=== PATIENT | male | born 1950 | race Caucasian/White ===

== ENCOUNTER 2016-12-01 03:38 | Inpatient (IN) | payer OTHER ==
[2016-11-30 04:55] VITALS: BP 154/92
[~2016-12-01] VITALS: Ht 188 cm; Wt 64.1 kg
[2016-12-01] VITALS (10 sets, daily range): BP systolic 126–187; BP diastolic 71–94
[2016-12-01] MEDS ORDERED: MORPHINE SULFATE 2 MG/ML DISP.SYRIN. IV PRN ×2 (05:30→12:45)
[2016-12-01] MEDS ORDERED: IV NORMAL SALINE 1000ML BAG 1,000 ML IV SCH (05:30)
[2016-12-01] MEDS ORDERED: MULT1TAB52 PO (05:53)
[2016-12-01] MEDS ORDERED: THIA100T8 PO (05:53)
[2016-12-01] MEDS ORDERED: LACT-128 PO ×2 (05:53)
[2016-12-01] MEDS ORDERED: FOLI1TAB16 PO (05:53)
[2016-12-01] MEDS ORDERED: ASPI81TA2 PO (05:53)
[2016-12-01] MEDS ORDERED: LISI40TA PO (05:53)
[2016-12-01 08:41] LABS: BASO # 0.1 x10^3/uL (0.0-0.2); BASO % 1 % (0-3); EOS % 0 % (0-3); HEMATOCRIT 43.9 % (39.0-53.0); HEMOGLOBIN 15.5 g/dL (13.0-17.5); LYMPH # 1.3 x10^3/uL (1.0-4.8); LYMPH % 11 % (24-48); MEAN CORPUSCULAR HEMOGLOBIN 36 pg (25-35); MEAN CORPUSCULAR HGB CONC 35 g/dL (31-37); MEAN CORPUSCULAR VOLUME 101 fL (79-100); MONO % 7 % (0-9); NEUT % 81 % (31-73); PLATELET COUNT 372 x10^3/uL (140-400); RED BLOOD COUNT 4.36 x10^6/uL (4.30-5.70); RED CELL DISTRIBUTION WIDTH 13.5 % (11.5-14.5); WHITE BLOOD COUNT 12.1 x10^3/uL (4.0-11.0)
[2016-12-01 09:00] LABS: ALBUMIN 3.6 g/dL (3.4-5.0); ALBUMIN/GLOBULIN RATIO 0.9 (1.0-1.7); CALCIUM 8.8 mg/dL (8.5-10.1); CREATININE 0.8 mg/dL (0.7-1.3); GFR 97.3; TOTAL BILIRUBIN 0.6 mg/dL (0.2-1.0); TOTAL PROTEIN 7.5 g/dL (6.4-8.2)
[2016-12-01] MEDS ORDERED: ONDANSETRON PF 4 MG/2 ML VIAL. IV PRN ×4 (10:00→16:00)
--- NOTE | 2016-12-01 12:03 | PDOC1 ---
History and Physical Current Medications Current Medications Current Medications Medications (Trade) Dose Ordered Sig/Walker Start Time Stop Time Status Last Admin Dose Admin Morphine Sulfate 1 mg PRN Q2HR PRN 12/01/16 05:30 Ondansetron HCl (Zofran) 4 mg PRN Q6HRS PRN 12/01/16 10:00 12/01/16 09:55 4 MG Sodium Chloride 1,000 ml @ 100 mls/hr Q10H 12/01/16 05:30 12/01/16 05:30 100 MLS/HR Allergies Allergies Allergies Coded Allergies Type Severity Reaction Last Updated Verified No Known Drug Allergies 12/01/16 No ROS Review of System CONSTITUTIONAL: No fever or chills EYES: No recent changes SKIN: No rash or itching CARDIOVASCULAR: No chest pain, syncope, palpitations, or edema RESPIRATORY: No SOB or cough GASTROINTESTINAL: abdominal pain NEUROLOGICAL: No headaches or weakness ENDOCRINE: No cold or heat intolerance GENITOURINARY: No urgency or frequency of urination MUSCULOSKELETAL: No back pain or joint pain LYMPHATICS: No enlarged lymph nodes PSYCHIATRIC: No anxiety or depression Physical Exam Physical Exam GEN.: No apparent distress. Alert and oriented TIMES 3 HEENT: Head is normocephalic, atraumatic NECK: Supple. LUNGS: Clear to auscultation. HEART: RRR, S1, S2 present. Peripheral pulses intact ABDOMEN: Soft, tender RLQ. Positive bowel sounds.INCARCERATED HERNIA EXTREMITIES: Without any cyanosis. NEUROLOGIC: Normal speech, normal tone PSYCHIATRIC: Normal affect, normal mood. SKIN: No ulcerations Vitals Vitals Vital Signs Date Time Temp Pulse Resp B/P (MAP) Pulse Ox O2 Delivery O2 Flow Rate FiO2 12/01/16 11:02 99.1 75 17 187/94 (125) 97 Room Air 99.1 Labs Labs Laboratory Tests Test 12/01/16 08:00 White Blood Count 12.1 x10^3/uL (4.0-11.0) Red Blood Count 4.36 x10^6/uL (4.30-5.70) Hemoglobin 15.5 g/dL (13.0-17.5) Hematocrit 43.9 % (39.0-53.0) Mean Corpuscular Volume 101 fL (79-100) Mean Corpuscular Hemoglobin 36 pg (25-35) Mean Corpuscular Hemoglobin Concent 35 g/dL (31-37) Red Cell Distribution Width 13.5 % (11.5-14.5) Platelet Count 372 x10^3/uL (140-400) Neutrophils (%) (Auto) 81 % (31-73) Lymphocytes (%) (Auto) 11 % (24-48) Monocytes (%) (Auto) 7 % (0-9) Eosinophils (%) (Auto) 0 % (0-3) Basophils (%) (Auto) 1 % (0-3) Neutrophils # (Auto) 9.9 x10^3uL (1.8-7.7) Lymphocytes # (Auto) 1.3 x10^3/uL (1.0-4.8) Monocytes # (Auto) 0.8 x10^3/uL (0.0-1.1) Eosinophils # (Auto) 0.0 x10^3/uL (0.0-0.7) Basophils # (Auto) 0.1 x10^3/uL (0.0-0.2) Sodium Level 130 mmol/L (136-145) Potassium Level 4.0 mmol/L (3.5-5.1) Chloride Level 95 mmol/L (98-107) Carbon Dioxide Level 29 mmol/L (21-32) Anion Gap 6 (6-14) Blood Urea Nitrogen 9 mg/dL (8-26) Creatinine 0.8 mg/dL (0.7-1.3) Estimated GFR (Cockcroft-Gault) 97.3 BUN/Creatinine Ratio 11 (6-20) Glucose Level 118 mg/dL (70-99) Lactic Acid Level 1.1 mmol/L (0.4-2.0) Calcium Level 8.8 mg/dL (8.5-10.1) Total Bilirubin 0.6 mg/dL (0.2-1.0) Aspartate Amino Transf (AST/SGOT) 29 U/L (15-37) Alanine Aminotransferase (ALT/SGPT) 25 U/L (16-63) Alkaline Phosphatase 43 U/L (46-116) Total Protein 7.5 g/dL (6.4-8.2) Albumin 3.6 g/dL (3.4-5.0) Albumin/Globulin Ratio 0.9 (1.0-1.7) Laboratory Tests Test 12/01/16 08:00 White Blood Count 12.1 x10^3/uL (4.0-11.0) Red Blood Count 4.36 x10^6/uL (4.30-5.70) Hemoglobin 15.5 g/dL (13.0-17.5) Hematocrit 43.9 % (39.0-53.0) Mean Corpuscular Volume 101 fL (79-100) Mean Corpuscular Hemoglobin 36 pg (25-35) Mean Corpuscular Hemoglobin Concent 35 g/dL (31-37) Red Cell Distribution Width 13.5 % (11.5-14.5) Platelet Count 372 x10^3/uL (140-400) Neutrophils (%) (Auto) 81 % (31-73) Lymphocytes (%) (Auto) 11 % (24-48) Monocytes (%) (Auto) 7 % (0-9) Eosinophils (%) (Auto) 0 % (0-3) Basophils (%) (Auto) 1 % (0-3) Neutrophils # (Auto) 9.9 x10^3uL (1.8-7.7) Lymphocytes # (Auto) 1.3 x10^3/uL (1.0-4.8) Monocytes # (Auto) 0.8 x10^3/uL (0.0-1.1) Eosinophils # (Auto) 0.0 x10^3/uL (0.0-0.7) Basophils # (Auto) 0.1 x10^3/uL (0.0-0.2) Sodium Level 130 mmol/L (136-145) Potassium Level 4.0 mmol/L (3.5-5.1) Chloride Level 95 mmol/L (98-107) Carbon Dioxide Level 29 mmol/L (21-32) Anion Gap 6 (6-14) Blood Urea Nitrogen 9 mg/dL (8-26) Creatinine 0.8 mg/dL (0.7-1.3) Estimated GFR (Cockcroft-Gault) 97.3 BUN/Creatinine Ratio 11 (6-20) Glucose Level 118 mg/dL (70-99) Lactic Acid Level 1.1 mmol/L (0.4-2.0) Calcium Level 8.8 mg/dL (8.5-10.1) Total Bilirubin 0.6 mg/dL (0.2-1.0) Aspartate Amino Transf (AST/SGOT) 29 U/L (15-37) Alanine Aminotransferase (ALT/SGPT) 25 U/L (16-63) Alkaline Phosphatase 43 U/L (46-116) Total Protein 7.5 g/dL (6.4-8.2) Albumin 3.6 g/dL (3.4-5.0) Albumin/Globulin Ratio 0.9 (1.0-1.7) VTE Prophylaxis Ordered VTE Prophylaxis Devices: Yes VTE Pharmacological Prophylaxi: Yes RETA ALCALA MD December 01, 2016 12:03
[2016-12-01] MEDS ORDERED: hydrALAZINE 20 MG/ML VIAL. IVP PRN (12:15)
[2016-12-01] MEDS ORDERED: ACETAMINOPHEN 325 MG TABLET. PO PRN (12:15)
[2016-12-01] MEDS ORDERED: ALBUTEROL SULFATE 2.5 MG/3 ML NEBU. NEB PRN (12:15)
[2016-12-01] MEDS ORDERED: IV RINGERS,LACTATED 1000ML 1,000 ML IV SCH (12:42)
[2016-12-01] MEDS ORDERED: fentaNYL PF VIAL 100 MCG/2 ML VIAL IV PRN ×2 (12:45)
[2016-12-01] MEDS ORDERED: HYDROmorphone 2 MG/ML VIAL IV PRN (12:45)
[2016-12-01] MEDS ORDERED: LIDOCAINE 1% 1 ML SYRINGE. ID PRN (12:45)
[2016-12-01] MEDS ORDERED: PROCHLORPERAZINE 10 MG/2 ML VIAL. IV PRN (12:45)
--- NOTE | 2016-12-01 12:53 | PDOC ---
SURGICAL PROGRESS NOTE Subjective 66 yo M with incarcerated RIH TO OR for repair R/B/A d/w pt and pt's daughter Thanks for consult! [id number] Vital Signs Vital Signs Date Time Temp Pulse Resp B/P (MAP) Pulse Ox O2 Delivery O2 Flow Rate FiO2 12/01/16 11:02 99.1 75 17 187/94 (125) 97 Room Air 99.1 Labs Laboratory Tests Test 12/01/16 08:00 White Blood Count 12.1 x10^3/uL (4.0-11.0) Red Blood Count 4.36 x10^6/uL (4.30-5.70) Hemoglobin 15.5 g/dL (13.0-17.5) Hematocrit 43.9 % (39.0-53.0) Mean Corpuscular Volume 101 fL (79-100) Mean Corpuscular Hemoglobin 36 pg (25-35) Mean Corpuscular Hemoglobin Concent 35 g/dL (31-37) Red Cell Distribution Width 13.5 % (11.5-14.5) Platelet Count 372 x10^3/uL (140-400) Neutrophils (%) (Auto) 81 % (31-73) Lymphocytes (%) (Auto) 11 % (24-48) Monocytes (%) (Auto) 7 % (0-9) Eosinophils (%) (Auto) 0 % (0-3) Basophils (%) (Auto) 1 % (0-3) Neutrophils # (Auto) 9.9 x10^3uL (1.8-7.7) Lymphocytes # (Auto) 1.3 x10^3/uL (1.0-4.8) Monocytes # (Auto) 0.8 x10^3/uL (0.0-1.1) Eosinophils # (Auto) 0.0 x10^3/uL (0.0-0.7) Basophils # (Auto) 0.1 x10^3/uL (0.0-0.2) Sodium Level 130 mmol/L (136-145) Potassium Level 4.0 mmol/L (3.5-5.1) Chloride Level 95 mmol/L (98-107) Carbon Dioxide Level 29 mmol/L (21-32) Anion Gap 6 (6-14) Blood Urea Nitrogen 9 mg/dL (8-26) Creatinine 0.8 mg/dL (0.7-1.3) Estimated GFR (Cockcroft-Gault) 97.3 BUN/Creatinine Ratio 11 (6-20) Glucose Level 118 mg/dL (70-99) Lactic Acid Level 1.1 mmol/L (0.4-2.0) Calcium Level 8.8 mg/dL (8.5-10.1) Total Bilirubin 0.6 mg/dL (0.2-1.0) Aspartate Amino Transf (AST/SGOT) 29 U/L (15-37) Alanine Aminotransferase (ALT/SGPT) 25 U/L (16-63) Alkaline Phosphatase 43 U/L (46-116) Total Protein 7.5 g/dL (6.4-8.2) Albumin 3.6 g/dL (3.4-5.0) Albumin/Globulin Ratio 0.9 (1.0-1.7) Laboratory Tests Test 12/01/16 08:00 White Blood Count 12.1 x10^3/uL (4.0-11.0) Red Blood Count 4.36 x10^6/uL (4.30-5.70) Hemoglobin 15.5 g/dL (13.0-17.5) Hematocrit 43.9 % (39.0-53.0) Mean Corpuscular Volume 101 fL (79-100) Mean Corpuscular Hemoglobin 36 pg (25-35) Mean Corpuscular Hemoglobin Concent 35 g/dL (31-37) Red Cell Distribution Width 13.5 % (11.5-14.5) Platelet Count 372 x10^3/uL (140-400) Neutrophils (%) (Auto) 81 % (31-73) Lymphocytes (%) (Auto) 11 % (24-48) Monocytes (%) (Auto) 7 % (0-9) Eosinophils (%) (Auto) 0 % (0-3) Basophils (%) (Auto) 1 % (0-3) Neutrophils # (Auto) 9.9 x10^3uL (1.8-7.7) Lymphocytes # (Auto) 1.3 x10^3/uL (1.0-4.8) Monocytes # (Auto) 0.8 x10^3/uL (0.0-1.1) Eosinophils # (Auto) 0.0 x10^3/uL (0.0-0.7) Basophils # (Auto) 0.1 x10^3/uL (0.0-0.2) Sodium Level 130 mmol/L (136-145) Potassium Level 4.0 mmol/L (3.5-5.1) Chloride Level 95 mmol/L (98-107) Carbon Dioxide Level 29 mmol/L (21-32) Anion Gap 6 (6-14) Blood Urea Nitrogen 9 mg/dL (8-26) Creatinine 0.8 mg/dL (0.7-1.3) Estimated GFR (Cockcroft-Gault) 97.3 BUN/Creatinine Ratio 11 (6-20) Glucose Level 118 mg/dL (70-99) Lactic Acid Level 1.1 mmol/L (0.4-2.0) Calcium Level 8.8 mg/dL (8.5-10.1) Total Bilirubin 0.6 mg/dL (0.2-1.0) Aspartate Amino Transf (AST/SGOT) 29 U/L (15-37) Alanine Aminotransferase (ALT/SGPT) 25 U/L (16-63) Alkaline Phosphatase 43 U/L (46-116) Total Protein 7.5 g/dL (6.4-8.2) Albumin 3.6 g/dL (3.4-5.0) Albumin/Globulin Ratio 0.9 (1.0-1.7) ELADIA KLEIN MD December 01, 2016 12:53
[2016-12-01] MEDS ORDERED: DEXAMETHASONE SOD PHOS 20 MG/5 ML VIAL. ONE (13:48)
[2016-12-01] MEDS ORDERED: SUCCINYLCHOLINE 200 MG/10 ML VIAL. ONE (13:48)
[2016-12-01] MEDS ORDERED: fentaNYL PF VIAL 100 MCG/2 ML VIAL ONE ×2 (13:48→15:45)
[2016-12-01] MEDS ORDERED: PROPOFOL 20 ML IV ONE (13:48)
[2016-12-01] MEDS ORDERED: ONDANSETRON PF 4 MG/2 ML VIAL. ONE (13:48)
[2016-12-01] MEDS ORDERED: LIDOCAINE 2% 100 MG/5 ML SYRINGE. ONE (13:48)
[2016-12-01] MEDS ORDERED: ceFAZolin 2GM PREMIX 2 GM/50 ML BAG IV ONE (14:00)
[2016-12-01] MEDS ORDERED: BUPIVAC MPF-EPI 0.5%-1:200000 30 ML VIAL. ONE (14:22)
[2016-12-01] MEDS ORDERED: VECURONIUM BOLUS 10 MG VIAL. IV ONE (14:36)
[2016-12-01] MEDS ORDERED: ePHEDrine PF IN SALINE 50 MG/5 ML DISP.SYRIN IV ONE (15:24)
[2016-12-01] MEDS ORDERED: PHENYLEPHRINE in 0.9% NACL PF 1 MG/10 ML DISP.SYRIN. IV ONE (15:46)
[2016-12-01] MEDS ORDERED: GLYCOPYRROLATE 1 MG/5 ML VIAL. ONE (15:50)
[2016-12-01] MEDS ORDERED: NEOSTIGMINE METHYLSULFATE 5 MG/5 ML SYRINGE. ONE (15:51)
[2016-12-01] MEDS ORDERED: SEVOFLURANE 61 TO 120 MINUTES. IH ONE (15:54)
[2016-12-01] MEDS: IV NORMAL SALINE 1000ML BAG 1,000 ML IV SCH (15:56)
[2016-12-01] MEDS ORDERED: NALOXONE 0.4 MG/ML VIAL. IV PRN (16:00)
[2016-12-01] MEDS ORDERED: 0.9 % SODIUM CHLORIDE 10 ML DISP.SYRIN. IV PRN (16:00)
[2016-12-01] MEDS ORDERED: ENOXAPARIN 40 MG/0.4 ML SYRINGE. SQ SCH (16:00)
--- NOTE | 2016-12-01 16:06 | PDOC ---
BRIEF OPERATIVE NOTE Pre-Op Diagnosis Incarcerated RIH Post-Op Diagnosis Right femoral hernia Procedure Performed Right femoral hernia repair, laparoscopic exploration Surgeon Ashu Anesthesia Type: General, Local Blood Loss 20 IV Fluid 800 Specimens Obtained hernia sac Findings no compromised bowel Complications none Additional Remarks [id number] ELADIA KLEIN MD December 01, 2016 16:06
[2016-12-01] MEDS: IV RINGERS,LACTATED 1000ML 1,000 ML IV SCH (16:58)
[2016-12-02 03:10] VITALS: BP 120/72
[2016-12-02] MEDS: IV RINGERS,LACTATED 1000ML 1,000 ML IV SCH ×3 (05:43→21:56)
[2016-12-02 06:52] LABS: BASO % 0 % (0-3); EOS % 0 % (0-3); HEMATOCRIT 37.5 % (39.0-53.0); HEMOGLOBIN 13.1 g/dL (13.0-17.5); LYMPH # 1.6 x10^3/uL (1.0-4.8); LYMPH % 13 % (24-48); MEAN CORPUSCULAR HEMOGLOBIN 36 pg (25-35); MEAN CORPUSCULAR HGB CONC 35 g/dL (31-37); MEAN CORPUSCULAR VOLUME 102 fL (79-100); MONO % 9 % (0-9); NEUT % 78 % (31-73); PLATELET COUNT 309 x10^3/uL (140-400); RED BLOOD COUNT 3.69 x10^6/uL (4.30-5.70); RED CELL DISTRIBUTION WIDTH 13.7 % (11.5-14.5); WHITE BLOOD COUNT 12.4 x10^3/uL (4.0-11.0)
[2016-12-02 07:04] LABS: CALCIUM 8.2 mg/dL (8.5-10.1); CREATININE 0.8 mg/dL (0.7-1.3); GFR 97.3; POTASSIUM 4.3 mmol/L (3.5-5.1)
[2016-12-02] MEDS: ENOXAPARIN 40 MG/0.4 ML SYRINGE. SQ SCH (09:17)
--- NOTE | 2016-12-02 09:42 | CONS ---
DATE OF CONSULTATION: 12/01/2016 REFERRING PHYSICIANS: Dr. Pk Borja, Dr. Roxy Jovel. CHIEF COMPLAINT: Right groin pain, nausea and vomiting. DIAGNOSIS: Incarcerated right inguinal hernia. PLANNED PROCEDURE: Right inguinal hernia repair, possible bowel resection. INDICATION: A 66-year-old male who does not report a previous hernia, presents with complaints of right groin pain and tender bulge with some associated nausea and vomiting, has had some diarrhea associated with this. He was seen at the outside facility and subsequently transferred to [facility] for definitive care. He is seen in his hospital room, does report having some nausea and dry heaves, but reports fairly minimal pain. He denies previous episodes of anything like this. He is accompanied by supportive daughter. ALLERGIES: He has no known drug allergies. HOME MEDICATIONS: Include aspirin, folic acid, Ensure, lisinopril, and thiamine. PAST MEDICAL HISTORY: History of TIA, psychiatric problems. PAST SURGICAL HISTORY: None. SOCIAL HISTORY: Positive for tobacco, six pack per week, reported to have some history of alcohol abuse, he also smokes frequently, is encouraged on moderation on using. FAMILY HISTORY: Positive for stroke. REVIEW OF SYSTEMS: All systems reviewed and negative except for HPI. PHYSICAL EXAMINATION: GENERAL: Well-developed, very thin male in no obvious distress, given his BMI is concerning for chronic malnutrition, is normocephalic, atraumatic, somewhat disheveled. VITAL SIGNS: He is afebrile. HEENT: Within normal limits, although he is noted to have some hypertension. Pupils equal. Anicteric sclerae. Oropharynx clear. NECK: Supple. Trachea is midline. CHEST: Bilateral chest excursion, no chest wall tenderness to palpation. ABDOMEN: Soft, nondistended, nontender to palpation. He has a palpable irreducible right groin bulge. No peritoneal signs. EXTREMITIES: No clubbing, cyanosis or edema. IMAGING: From the outside facility demonstrates concern for an incarcerated right inguinal hernia with associated small-bowel obstruction. IMPRESSION AND RECOMMENDATIONS: This is a 66-year-old male with incarcerated right inguinal hernia. We will plan on right inguinal hernia repair as soon as OR is available. Risks, benefits, alternatives are discussed with the patient and the patient's daughter. Risks including but not limited to bleeding, infection, damage to surrounding structures, risk of anesthesia, risk of need for bowel resection. He does remain at high risk for perioperative complications secondary concern for chronic malnutrition, alcohol abuse and tobacco abuse. The patient and the patient's daughter appear to understand and their entire questions were answered and they agreed to proceed. Thank you for allowing participation in the care of this pleasant patient. ELADIA KLEIN MD DR: APARNA/bia JOB#: [id number] / [id number] ROXY Cerda MD, SRINIVASA MD
--- NOTE | 2016-12-02 09:43 | HP ---
ADMIT DATE: 12/01/2016 CHIEF COMPLAINT: Abdominal pain. HISTORY OF PRESENT ILLNESS: A 66-year-old male patient admitted to the hospital for abdominal pain, intractable in nature with nausea and episodes of vomiting. The abdominal pain is there for a couple of days and located to the right lower quadrant region, worse with coughing and also noted to have some bump-like swelling. He is being transferred to the hospital for surgical consultation. During hospitalization, he was seen by Dr. Wakefield. PAST MEDICAL HISTORY: Hypertension. PAST SURGICAL HISTORY: None. PERSONAL HISTORY: No smoking, no alcohol, no drug abuse. FAMILY HISTORY: No cancers, GI. REVIEW OF SYSTEMS: Please see my electronic H and P. PHYSICAL EXAMINATION: Please see my electronic H and P. LABORATORY FINDINGS: Revealed CBC and BMP within normal limits. WBC is 12.1 and platelets 372. Chemistries: Sodium 130, potassium 4.0, chloride is 95. Glucose 118. ASSESSMENT: 1. Incarcerated right inguinal hernia. 2. Hypertension. PLAN: 1. Pain control with IV morphine 2 mg q.2 hours. 2. N.p.o. 3. IV hydration with normal saline at 75 mL/hour. 4. Surgical consultation with Dr. Wakefield with possible femoral hernia repair today, laparoscopic. 5. P.r.n. hydralazine for blood pressure systolic more than 150. 6. Monitor his electrolytes and sodium in the a.m. 7. Supportive care. RETA ALCALA MD DR: CARLOS/bia JOB#: [id number] / [id number] KAPIL
--- NOTE | 2016-12-02 09:43 | OP ---
DATE OF SURGERY: 12/01/2016 REFERRING PHYSICIANS: Dr. Fleming, Dr. Roxy Jovel and Dr. Pk Borja. Thank you for the consult. PREOPERATIVE DIAGNOSES: Right incarcerated hernia, small-bowel obstruction. POSTOPERATIVE DIAGNOSES: Right incarcerated hernia, small-bowel obstruction, femoral hernia. PROCEDURE: Right femoral hernia repair, laparoscopic exploration. SURGEON: Anselmo Wakefield MD ESTIMATED BLOOD LOSS: 20 mL COMPLICATIONS: None. FINDINGS: Viable-appearing small bowel, no current viscera within the femoral hernia sac. INDICATIONS: A 66-year-old male who presents from an outside facility with a concern for incarcerated right inguinal hernia by CT. Subsequently, it was felt the patient best be served by a right inguinal hernia repair and possible small bowel resection. The patient and patient's family were informed of the risks, benefits and alternatives to the procedure, risks including, but not limited to bleeding, infection, damage to surrounding structures, risk of anesthesia, risk of bowel resection. The patient and the patient's family appeared to understand and their insightful questions were answered and they agreed to proceed. DESCRIPTION OF PROCEDURE: After obtaining informed consent, the patient was taken to the operating room, induced under general endotracheal anesthetic. The patient was prepped and draped in the usual fashion in the right groin area over the palpable defect. A transverse incision was made in this area. The subcutaneous tissue was divided using electrocautery. The Karuna's fascia was divided using electrocautery. The external oblique was identified by the direction of its fibers as well as the exiting spermatic cord. There was no evidence of obvious hernia here. The hernia was identified below the inguinal ligament consistent with a femoral hernia, which appeared to be incarcerated and was not reducible. The spermatic cord was not dissected out as the hernia was below the inguinal canal. The femoral hernia was then dissected down to the inguinal ligament circumferentially. The hernia sac was then sharply opened. There was some bruising of the inside lining of the peritoneum within the femoral hernia sac consistent with incarceration, but there was no evidence of viscera within this. To evaluate the viscera, a 5 mm trocar, nonbladed was introduced via the defect, which was very small and the laparoscope was introduced and pneumoperitoneum was thus established. The small bowel was visualized. It was found to be somewhat distended and there was an area of small bowel that appeared to be inflamed consistent with its recent incarceration; however, it was completely viable with improvement in its vascularity and diffusely noted peristalsis. No evidence of compromised bowel in the visualized area. An NG tube was inserted during the surgery. There was no evidence of other pathology. No evidence of other hernia. The laparoscope was removed. The hernia sac was excised and a high ligation was performed using 0 Vicryl stitch. The defect was then closed. It was very small, smaller than the book sewing machine operator's finger, but using the inguinal ligament and femoral fascia, the defect was reapproximated with multiple interrupted 0 Vicryl stitches. The femoral vessels were not compromised. 0.5% Marcaine with epinephrine was injected in the surrounding tissues. The subcutaneous tissues were reapproximated with 0 Vicryl stitch in a continuous fashion. The skin incisions were reapproximated with 4-0 Monocryl in a subcuticular fashion. Sterile dressing was placed over the wound. The patient tolerated the procedure well and was discharged to the recovery room in stable condition. All counts were correct. There were no immediate complications. ANSELMO WAKEFIELD MD DR: APARNA/bia JOB#: [id number] / [id number] ROXY Cerda MD, SRINIVASA MD
[2016-12-02 11:00] VITALS: BP 153/72
--- NOTE | 2016-12-02 11:16 | RAD ---
Indication: Postop. Time of exam 11 0 4:00 AM The bowel gas pattern appears nonobstructed. No free air is identified. No pathologic calcifications are detected. Impression: No acute abnormality is detected.
--- NOTE | 2016-12-02 11:30 | PDOC ---
SURGICAL PROGRESS NOTE Subjective Pt reports feeling "terrific" Vital Signs Vital Signs Date Time Temp Pulse Resp B/P (MAP) Pulse Ox O2 Delivery O2 Flow Rate FiO2 12/02/16 08:00 Nasal Cannula 2.0 12/02/16 03:10 98.7 66 20 120/72 (88) 98 98.7 I&O Intake and Output 12/02/16 07:00 Intake Total 2050 ml Output Total 1470 ml Balance 580 ml Intake Oral 0 ml IV Total 2050 ml Output Urine Total 1450 ml Estimated Blood Loss 20 ml # Voids 4 General: Alert, Oriented X3, Cooperative, No acute distress Abdomen: Soft, Other (dressing c/d/i) Labs Laboratory Tests Test 12/01/16 08:00 12/02/16 06:22 White Blood Count 12.1 x10^3/uL (4.0-11.0) 12.4 x10^3/uL (4.0-11.0) Red Blood Count 4.36 x10^6/uL (4.30-5.70) 3.69 x10^6/uL (4.30-5.70) Hemoglobin 15.5 g/dL (13.0-17.5) 13.1 g/dL (13.0-17.5) Hematocrit 43.9 % (39.0-53.0) 37.5 % (39.0-53.0) Mean Corpuscular Volume 101 fL (79-100) 102 fL (79-100) Mean Corpuscular Hemoglobin 36 pg (25-35) 36 pg (25-35) Mean Corpuscular Hemoglobin Concent 35 g/dL (31-37) 35 g/dL (31-37) Red Cell Distribution Width 13.5 % (11.5-14.5) 13.7 % (11.5-14.5) Platelet Count 372 x10^3/uL (140-400) 309 x10^3/uL (140-400) Neutrophils (%) (Auto) 81 % (31-73) 78 % (31-73) Lymphocytes (%) (Auto) 11 % (24-48) 13 % (24-48) Monocytes (%) (Auto) 7 % (0-9) 9 % (0-9) Eosinophils (%) (Auto) 0 % (0-3) 0 % (0-3) Basophils (%) (Auto) 1 % (0-3) 0 % (0-3) Neutrophils # (Auto) 9.9 x10^3uL (1.8-7.7) 9.6 x10^3uL (1.8-7.7) Lymphocytes # (Auto) 1.3 x10^3/uL (1.0-4.8) 1.6 x10^3/uL (1.0-4.8) Monocytes # (Auto) 0.8 x10^3/uL (0.0-1.1) 1.1 x10^3/uL (0.0-1.1) Eosinophils # (Auto) 0.0 x10^3/uL (0.0-0.7) 0.0 x10^3/uL (0.0-0.7) Basophils # (Auto) 0.1 x10^3/uL (0.0-0.2) 0.0 x10^3/uL (0.0-0.2) Sodium Level 130 mmol/L (136-145) 132 mmol/L (136-145) Potassium Level 4.0 mmol/L (3.5-5.1) 4.3 mmol/L (3.5-5.1) Chloride Level 95 mmol/L (98-107) 100 mmol/L (98-107) Carbon Dioxide Level 29 mmol/L (21-32) 25 mmol/L (21-32) Anion Gap 6 (6-14) 7 (6-14) Blood Urea Nitrogen 9 mg/dL (8-26) 11 mg/dL (8-26) Creatinine 0.8 mg/dL (0.7-1.3) 0.8 mg/dL (0.7-1.3) Estimated GFR (Cockcroft-Gault) 97.3 97.3 BUN/Creatinine Ratio 11 (6-20) Glucose Level 118 mg/dL (70-99) 98 mg/dL (70-99) Lactic Acid Level 1.1 mmol/L (0.4-2.0) Calcium Level 8.8 mg/dL (8.5-10.1) 8.2 mg/dL (8.5-10.1) Total Bilirubin 0.6 mg/dL (0.2-1.0) Aspartate Amino Transf (AST/SGOT) 29 U/L (15-37) Alanine Aminotransferase (ALT/SGPT) 25 U/L (16-63) Alkaline Phosphatase 43 U/L (46-116) Total Protein 7.5 g/dL (6.4-8.2) Albumin 3.6 g/dL (3.4-5.0) Albumin/Globulin Ratio 0.9 (1.0-1.7) Laboratory Tests Test 12/02/16 06:22 White Blood Count 12.4 x10^3/uL (4.0-11.0) Red Blood Count 3.69 x10^6/uL (4.30-5.70) Hemoglobin 13.1 g/dL (13.0-17.5) Hematocrit 37.5 % (39.0-53.0) Mean Corpuscular Volume 102 fL (79-100) Mean Corpuscular Hemoglobin 36 pg (25-35) Mean Corpuscular Hemoglobin Concent 35 g/dL (31-37) Red Cell Distribution Width 13.7 % (11.5-14.5) Platelet Count 309 x10^3/uL (140-400) Neutrophils (%) (Auto) 78 % (31-73) Lymphocytes (%) (Auto) 13 % (24-48) Monocytes (%) (Auto) 9 % (0-9) Eosinophils (%) (Auto) 0 % (0-3) Basophils (%) (Auto) 0 % (0-3) Neutrophils # (Auto) 9.6 x10^3uL (1.8-7.7) Lymphocytes # (Auto) 1.6 x10^3/uL (1.0-4.8) Monocytes # (Auto) 1.1 x10^3/uL (0.0-1.1) Eosinophils # (Auto) 0.0 x10^3/uL (0.0-0.7) Basophils # (Auto) 0.0 x10^3/uL (0.0-0.2) Sodium Level 132 mmol/L (136-145) Potassium Level 4.3 mmol/L (3.5-5.1) Chloride Level 100 mmol/L (98-107) Carbon Dioxide Level 25 mmol/L (21-32) Anion Gap 7 (6-14) Blood Urea Nitrogen 11 mg/dL (8-26) Creatinine 0.8 mg/dL (0.7-1.3) Estimated GFR (Cockcroft-Gault) 97.3 Glucose Level 98 mg/dL (70-99) Calcium Level 8.2 mg/dL (8.5-10.1) Assessment/Plan s/p femoral hernia repair KUB wnl ADAT d/c once tolerating diet Problems: ELADIA KLEIN MD December 02, 2016 11:30
[2016-12-02] MEDS ORDERED: POLYETHYLENE GLYCOL 3350 17 GM PACKET. PO PRN (12:45)
--- NOTE | 2016-12-02 12:49 | PDOC ---
PROGRESS NOTES Chief Complaint Chief Complaint incarcerated right femoral hernia s/p femoral hernia repair SIRS, POA, no organ dysfunction hyponatremia History of Present Illness History of Present Illness ADAT stool softeners OOB to chair ambulate Vitals Vitals Vital Signs Date Time Temp Pulse Resp B/P (MAP) Pulse Ox O2 Delivery O2 Flow Rate FiO2 12/02/16 11:00 97.8 68 16 153/72 (99) 96 Nasal Cannula 2.0 97.8 Physical Exam General: Alert, Oriented X3, Cooperative, No acute distress Heart: Regular rate Lungs: Clear, Wheezing Abdomen: Soft, Other (dressing c/d/i) Skin: No rashes Labs LABS Laboratory Tests Test 12/02/16 06:22 White Blood Count 12.4 x10^3/uL (4.0-11.0) Red Blood Count 3.69 x10^6/uL (4.30-5.70) Hemoglobin 13.1 g/dL (13.0-17.5) Hematocrit 37.5 % (39.0-53.0) Mean Corpuscular Volume 102 fL (79-100) Mean Corpuscular Hemoglobin 36 pg (25-35) Mean Corpuscular Hemoglobin Concent 35 g/dL (31-37) Red Cell Distribution Width 13.7 % (11.5-14.5) Platelet Count 309 x10^3/uL (140-400) Neutrophils (%) (Auto) 78 % (31-73) Lymphocytes (%) (Auto) 13 % (24-48) Monocytes (%) (Auto) 9 % (0-9) Eosinophils (%) (Auto) 0 % (0-3) Basophils (%) (Auto) 0 % (0-3) Neutrophils # (Auto) 9.6 x10^3uL (1.8-7.7) Lymphocytes # (Auto) 1.6 x10^3/uL (1.0-4.8) Monocytes # (Auto) 1.1 x10^3/uL (0.0-1.1) Eosinophils # (Auto) 0.0 x10^3/uL (0.0-0.7) Basophils # (Auto) 0.0 x10^3/uL (0.0-0.2) Sodium Level 132 mmol/L (136-145) Potassium Level 4.3 mmol/L (3.5-5.1) Chloride Level 100 mmol/L (98-107) Carbon Dioxide Level 25 mmol/L (21-32) Anion Gap 7 (6-14) Blood Urea Nitrogen 11 mg/dL (8-26) Creatinine 0.8 mg/dL (0.7-1.3) Estimated GFR (Cockcroft-Gault) 97.3 Glucose Level 98 mg/dL (70-99) Calcium Level 8.2 mg/dL (8.5-10.1) Review of Systems Review of Systems no n.v.d Assessment and Plan Assessmemt and Plan cont current Problems: Comment Review of Relevant I have reviewed the following items carson (where applicable) has been applied. Labs Laboratory Tests Test 12/01/16 08:00 12/02/16 06:22 White Blood Count 12.1 x10^3/uL (4.0-11.0) 12.4 x10^3/uL (4.0-11.0) Red Blood Count 4.36 x10^6/uL (4.30-5.70) 3.69 x10^6/uL (4.30-5.70) Hemoglobin 15.5 g/dL (13.0-17.5) 13.1 g/dL (13.0-17.5) Hematocrit 43.9 % (39.0-53.0) 37.5 % (39.0-53.0) Mean Corpuscular Volume 101 fL (79-100) 102 fL (79-100) Mean Corpuscular Hemoglobin 36 pg (25-35) 36 pg (25-35) Mean Corpuscular Hemoglobin Concent 35 g/dL (31-37) 35 g/dL (31-37) Red Cell Distribution Width 13.5 % (11.5-14.5) 13.7 % (11.5-14.5) Platelet Count 372 x10^3/uL (140-400) 309 x10^3/uL (140-400) Neutrophils (%) (Auto) 81 % (31-73) 78 % (31-73) Lymphocytes (%) (Auto) 11 % (24-48) 13 % (24-48) Monocytes (%) (Auto) 7 % (0-9) 9 % (0-9) Eosinophils (%) (Auto) 0 % (0-3) 0 % (0-3) Basophils (%) (Auto) 1 % (0-3) 0 % (0-3) Neutrophils # (Auto) 9.9 x10^3uL (1.8-7.7) 9.6 x10^3uL (1.8-7.7) Lymphocytes # (Auto) 1.3 x10^3/uL (1.0-4.8) 1.6 x10^3/uL (1.0-4.8) Monocytes # (Auto) 0.8 x10^3/uL (0.0-1.1) 1.1 x10^3/uL (0.0-1.1) Eosinophils # (Auto) 0.0 x10^3/uL (0.0-0.7) 0.0 x10^3/uL (0.0-0.7) Basophils # (Auto) 0.1 x10^3/uL (0.0-0.2) 0.0 x10^3/uL (0.0-0.2) Sodium Level 130 mmol/L (136-145) 132 mmol/L (136-145) Potassium Level 4.0 mmol/L (3.5-5.1) 4.3 mmol/L (3.5-5.1) Chloride Level 95 mmol/L (98-107) 100 mmol/L (98-107) Carbon Dioxide Level 29 mmol/L (21-32) 25 mmol/L (21-32) Anion Gap 6 (6-14) 7 (6-14) Blood Urea Nitrogen 9 mg/dL (8-26) 11 mg/dL (8-26) Creatinine 0.8 mg/dL (0.7-1.3) 0.8 mg/dL (0.7-1.3) Estimated GFR (Cockcroft-Gault) 97.3 97.3 BUN/Creatinine Ratio 11 (6-20) Glucose Level 118 mg/dL (70-99) 98 mg/dL (70-99) Lactic Acid Level 1.1 mmol/L (0.4-2.0) Calcium Level 8.8 mg/dL (8.5-10.1) 8.2 mg/dL (8.5-10.1) Total Bilirubin 0.6 mg/dL (0.2-1.0) Aspartate Amino Transf (AST/SGOT) 29 U/L (15-37) Alanine Aminotransferase (ALT/SGPT) 25 U/L (16-63) Alkaline Phosphatase 43 U/L (46-116) Total Protein 7.5 g/dL (6.4-8.2) Albumin 3.6 g/dL (3.4-5.0) Albumin/Globulin Ratio 0.9 (1.0-1.7) Laboratory Tests Test 12/02/16 06:22 White Blood Count 12.4 x10^3/uL (4.0-11.0) Red Blood Count 3.69 x10^6/uL (4.30-5.70) Hemoglobin 13.1 g/dL (13.0-17.5) Hematocrit 37.5 % (39.0-53.0) Mean Corpuscular Volume 102 fL (79-100) Mean Corpuscular Hemoglobin 36 pg (25-35) Mean Corpuscular Hemoglobin Concent 35 g/dL (31-37) Red Cell Distribution Width 13.7 % (11.5-14.5) Platelet Count 309 x10^3/uL (140-400) Neutrophils (%) (Auto) 78 % (31-73) Lymphocytes (%) (Auto) 13 % (24-48) Monocytes (%) (Auto) 9 % (0-9) Eosinophils (%) (Auto) 0 % (0-3) Basophils (%) (Auto) 0 % (0-3) Neutrophils # (Auto) 9.6 x10^3uL (1.8-7.7) Lymphocytes # (Auto) 1.6 x10^3/uL (1.0-4.8) Monocytes # (Auto) 1.1 x10^3/uL (0.0-1.1) Eosinophils # (Auto) 0.0 x10^3/uL (0.0-0.7) Basophils # (Auto) 0.0 x10^3/uL (0.0-0.2) Sodium Level 132 mmol/L (136-145) Potassium Level 4.3 mmol/L (3.5-5.1) Chloride Level 100 mmol/L (98-107) Carbon Dioxide Level 25 mmol/L (21-32) Anion Gap 7 (6-14) Blood Urea Nitrogen 11 mg/dL (8-26) Creatinine 0.8 mg/dL (0.7-1.3) Estimated GFR (Cockcroft-Gault) 97.3 Glucose Level 98 mg/dL (70-99) Calcium Level 8.2 mg/dL (8.5-10.1) Medications Current Medications Sodium Chloride 1,000 ml @ 100 mls/hr Q10H IV Last administered on 12/01/16 05:30; Start 12/01/16 at 05:30; Stop 12/01/16 at 16:11; Status DC Morphine Sulfate 1 mg PRN Q2HR PRN IV PAIN; Start 12/01/16 at 05:30 Ondansetron HCl (Zofran) 4 mg PRN Q6HRS PRN IV NAUSEA/VOMITING Last administered on 12/01/16 09:55; Start 12/01/16 at 10:00; Stop 12/01/16 at 16:08 ; Status DC Acetaminophen (Tylenol) 325 mg PRN Q6HRS PRN PO MILD PAIN / TEMP; Start at 12:15 Hydralazine HCl (Apresoline) 10 mg PRN Q4HRS PRN IVP ELEVATED BP, SEE COMMENTS ; Start 12/01/16 at 12:15 Ondansetron HCl (Zofran) 4 mg PRN Q8HRS PRN IV NAUSEA/VOMITING; Start 12/01/16 at 12:15; Stop 12/01/16 at 16:09; Status DC Albuterol Sulfate (Ventolin Neb Soln) 2.5 mg PRN Q4HRS PRN NEB SHORTNESS OF BREATH; Start 12/01/16 at 12:15 Cefazolin Sodium/ Dextrose 50 ml @ 100 mls/hr 1X PREOP IV ; Start 12/01/16 at 12:15; Stop 12/02/16 at 18:00 Ondansetron HCl (Zofran) 4 mg PRN Q6HRS PRN IV NAUSEA/VOMITING; Start 12/01/16 at 12:45; Stop 12/01/16 at 16:09; Status DC Fentanyl Citrate (Fentanyl 2ml Vial) 25 mcg PRN Q5MIN PRN IV MILD PAIN; Start 12/01/16 at 12:45; Stop 12/02/16 at 12:44 Fentanyl Citrate (Fentanyl 2ml Vial) 50 mcg PRN Q5MIN PRN IV MODERATE PAIN; Start 12/01/16 at 12:45; Stop 12/02/16 at 12:44 Morphine Sulfate 1 mg PRN Q10MIN PRN IV SEVERE PAIN; Start 12/01/16 at 12:45; Stop 12/02/16 at 12:44 Ringer's Solution 1,000 ml @ 0 mls/hr Q0M IV Last administered on 12/01/16t 14 :04; Start 12/01/16 at 12:42; Stop 12/02/16 at 02:07; Status DC Lidocaine HCl 2 ml PRN 1X PRN ID PRIOR TO IV START; Start 12/01/16 at 12:45; Stop 12/02/16 at 12:44 Hydromorphone HCl (Dilaudid) 0.5 mg PRN Q10MIN PRN IV SEV PAIN, Second choice; Start 12/01/16 at 12:45; Stop 12/02/16 at 12:44 Prochlorperazine Edisylate (Compazine) 5 mg PACU PRN PRN IV NAUSEA, MRX1; Start 12/01/16 at 12:45; Stop 12/02/16 at 12:44 Dexamethasone Sodium Phosphate (Decadron) 20 mg STK-MED ONCE .ROUTE ; Start 05/10 at 13:48; Stop 12/01/16 at 13:49; Status DC Ondansetron HCl (Zofran) 4 mg STK-MED ONCE .ROUTE ; Start 12/01/16 at 13:48; Stop 12/01/16 at 13:49; Status DC Propofol 20 ml @ As Directed STK-MED ONCE IV ; Start 12/01/16 at 13:48; Stop 05/10 at 13:49; Status DC Lidocaine HCl (Lidocaine HCl 2% Abboject) 100 mg STK-MED ONCE .ROUTE ; Start 05/10 at 13:48; Stop 12/01/16 at 13:49; Status DC Fentanyl Citrate (Fentanyl 2ml Vial) 100 mcg STK-MED ONCE .ROUTE ; Start at 13:48; Stop 12/01/16 at 13:49; Status DC Succinylcholine Chloride (Anectine) 200 mg STK-MED ONCE .ROUTE ; Start 12/01/16 at 13:48; Stop 12/01/16 at 13:49; Status DC Bupivacaine HCl/ Epinephrine Bitart (Sensorcain-Mpf Epi 0.5%-1:[id number]) 30 ml STK -MED ONCE .ROUTE Last administered on 12/01/16t 15:26; Start 12/01/16 at 14:22 ; Stop 12/01/16 at 14:23; Status DC Vecuronium Weston (Norcuron Bolus) 10 mg STK-MED ONCE IV ; Start 12/01/16 at 14 :36; Stop 12/01/16 at 14:37; Status DC Ephedrine Sulfate 50 mg STK-MED ONCE IV ; Start 12/01/16 at 15:24; Stop at 15:25; Status DC Fentanyl Citrate (Fentanyl 2ml Vial) 100 mcg STK-MED ONCE .ROUTE ; Start at 15:45; Stop 12/01/16 at 15:46; Status DC Phenylephrine HCl 1 mg STK-MED ONCE IV ; Start 12/01/16 at 15:46; Stop 12/01/16 at 15:47; Status DC Glycopyrrolate (Robinul) 1 mg STK-MED ONCE .ROUTE ; Start 12/01/16 at 15:50; Stop 12/01/16 at 15:51; Status DC Neostigmine Methylsulfate 5 mg STK-MED ONCE .ROUTE ; Start 12/01/16 at 15:51; Stop 12/01/16 at 15:52; Status DC Sevoflurane (Ultane) 60 ml STK-MED ONCE IH ; Start 12/01/16 at 15:54; Stop 12/01 at 15:55; Status DC Enoxaparin Sodium (Lovenox 40mg Syringe) 40 mg Q24H SQ ; Start 12/01/16 at 16:00 ; Status Cancel Sodium Chloride (Normal Saline Flush) 3 ml QSHIFT PRN IV AFTER MEDS AND BLOOD DRAWS; Start 12/01/16 at 16:00 Ringer's Solution 1,000 ml @ 100 mls/hr Q10H IV Last administered on t 05:43; Start 12/01/16 at 15:56 Naloxone HCl (Narcan) 0.4 mg PRN Q2MIN PRN IV SEE INSTRUCTIONS; Start 12/01/16 at 16:00 Sodium Chloride 1,000 ml @ 25 mls/hr Q24H IV ; Start 12/01/16 at 15:56 Hydromorphone HCl 30 ml @ 0 mls/hr CONT PRN PRN IV PROTOCOL Last administered on 12/01/16 16:39; Start 12/01/16 at 16:00 Ondansetron HCl (Zofran) 4 mg PRN Q6HRS PRN IV NAUESA, 1ST CHOICE; Start at 16:00 Enoxaparin Sodium (Lovenox 40mg Syringe) 40 mg Q24H SQ Last administered on 09:17; Start 12/02/16 at 08:00 Cefazolin Sodium/ Dextrose (Ancef 2gm Premix) 2 gm STK-MED ONCE IV ; Start 12/01 at 14:00; Stop 12/02/16 at 08:38; Status DC Active Scripts Active Reported Aspirin 81 Mg Tab.chew 1 Tab PO DAILY Thiamine Hcl 100 Mg Tablet 100 Mg PO DAILY Ensure Enlive (Lactose-Reduced Food) 237 Ml Liquid 237 Ml PO BID Ensure Enlive (Lactose-Reduced Food) 237 Ml Liquid 237 Ml PO Multivitamins (Multivitamin) 1 Each Tablet 1 Tab PO DAILY Lisinopril 40 Mg Tablet 1 Tab PO DAILY Folic Acid 1 Mg Tablet 1 Mg PO DAILY Vitals/I & O Vital Sign - Last 24 Hours 12/01/16 12/01/16 12/01/16 12/01/16 13:59 16:10 16:10 16:25 Temp 99.0 97.2 99.0 97.2 Pulse 79 69 85 Resp 16 20 20 B/P (MAP) 171/85 154/80 145/76 Pulse Ox 96 100 100 O2 Delivery Room Air Mask Simple Mask Simple Mask O2 Flow Rate 10 10 10 12/01/16 12/01/16 12/01/16 12/01/16 16:39 16:40 17:00 17:15 Temp 98.1 98.1 98.1 98.1 Pulse 78 65 98 Resp 20 20 18 18 B/P (MAP) 134/67 142/73 (96) 149/83 (105) Pulse Ox 99 99 97 97 O2 Delivery Nasal Cannula Room Air Room Air O2 Flow Rate 2 12/01/16 12/01/16 12/01/16 12/01/16 17:30 17:45 18:15 19:06 Temp 98.1 98.1 98.1 98.1 98.1 98.1 Pulse 69 69 78 Resp 18 18 18 B/P (MAP) 136/74 (94) 142/77 (98) 144/89 (107) Pulse Ox 97 97 98 98 O2 Delivery Room Air Room Air Room Air Nasal Cannula O2 Flow Rate 2.0 12/01/16 12/01/16 12/01/16 12/02/16 19:45 20:45 23:00 03:10 Temp 97.9 98.7 98.7 97.9 98.7 98.7 Pulse 91 89 67 66 Resp 20 20 20 20 B/P (MAP) 136/75 (95) 138/71 (93) 126/74 (91) 120/72 (88) Pulse Ox 98 99 98 98 O2 Delivery Room Air Nasal Cannula Nasal Cannula Nasal Cannula 12/02/16 12/02/16 08:00 11:00 Temp 97.8 97.8 Pulse 68 Resp 16 B/P (MAP) 153/72 (99) Pulse Ox 96 O2 Delivery Nasal Cannula Nasal Cannula O2 Flow Rate 2.0 2.0 Intake and Output 12/01/16 12/01/16 12/02/16 15:00 23:00 07:00 Intake Total 1050 ml 1000 ml Output Total 520 ml 950 ml Balance 530 ml 50 ml Nutrition Consultation Dietary Evaluation: Recommendations by RD: Increase Calorie Intake, Protein supplementation Comments: when able to adv diet rec regular with ensure Expected Outcomes/Goals: diet adv/ tolerance Interpretation of weight loss: >5% in 1 month Malnutrition Findings: Food and Nutrition Intake (Sev: <50% est energy req 5days Weight Status: Underweight EILEEN GOMEZ MD December 02, 2016 12:49
[2016-12-02] MEDS ORDERED: oxyCODONE/APAP 5/325 1 TAB TABLET PO PRN (13:00)
[2016-12-02] MEDS ORDERED: POLYETHYLENE GLYCOL 3350 17 GM PACKET. PO ONE (13:00)
[2016-12-02] MEDS: THIAMINE 100 MG TABLET. PO SCH (13:14)
[2016-12-02] MEDS: FOLIC ACID 1 MG TABLET. PO SCH (13:14)
[2016-12-02] MEDS: LISINOPRIL 40 MG TABLET. PO SCH (13:14)
[2016-12-02] MEDS: VITAMIN B12,B9,B6 COMPLEX 1 TABLET. PO SCH (13:14)
[2016-12-02] MEDS: DOCUSATE SODIUM 100 MG CAPSULE. PO SCH (13:14)
[2016-12-02] MEDS: MULTIVITAMIN with MINERAL TABLET. PO SCH (13:14)
[2016-12-02] MEDS: ASPIRIN CHEWABLE 81 MG TABLET. PO SCH (13:15)
[2016-12-02] MEDS: IV NORMAL SALINE 1000ML BAG 1,000 ML IV SCH (13:55)
[2016-12-02 15:00] VITALS: BP 116/63
[2016-12-02 19:00] VITALS: BP 130/78
[2016-12-02] MEDS ORDERED: LACTOSE REDUCED FOOD PO SCH (21:00)
[2016-12-02 23:00] VITALS: BP 136/70
[2016-12-03 04:40] LABS: BASO # 0.1 x10^3/uL (0.0-0.2); BASO % 1 % (0-3); EOS % 2 % (0-3); LYMPH # 2.4 x10^3/uL (1.0-4.8); LYMPH % 25 % (24-48); MEAN CORPUSCULAR HEMOGLOBIN 36 pg (25-35); MEAN CORPUSCULAR HGB CONC 35 g/dL (31-37); MEAN CORPUSCULAR VOLUME 102 fL (79-100); MONO % 10 % (0-9); NEUT % 63 % (31-73); PLATELET COUNT 297 x10^3/uL (140-400); RED BLOOD COUNT 3.63 x10^6/uL (4.30-5.70); RED CELL DISTRIBUTION WIDTH 13.4 % (11.5-14.5); WHITE BLOOD COUNT 9.6 x10^3/uL (4.0-11.0)
[2016-12-03 04:55] LABS: CALCIUM 8.5 mg/dL (8.5-10.1); CREATININE 0.8 mg/dL (0.7-1.3); GFR 97.3; POTASSIUM 3.9 mmol/L (3.5-5.1)
[2016-12-03 05:02] LABS: ALBUMIN 3.1 g/dL (3.4-5.0); DIRECT BILIRUBIN 0.2 mg/dL (0.0-0.2); TOTAL BILIRUBIN 0.6 mg/dL (0.2-1.0); TOTAL PROTEIN 6.5 g/dL (6.4-8.2)
[2016-12-03 07:00] VITALS: BP_SYST 131; BP_SYST 149; BP_DIAS 74; BP_DIAS 85
[2016-12-03] MEDS: IV RINGERS,LACTATED 1000ML 1,000 ML IV SCH (07:25)
[2016-12-03] MEDS: ENOXAPARIN 40 MG/0.4 ML SYRINGE. SQ SCH (07:32)
[2016-12-03 08:35] VITALS: BP 131/85
[2016-12-03] MEDS: VITAMIN B12,B9,B6 COMPLEX 1 TABLET. PO SCH (08:35)
[2016-12-03] MEDS: LISINOPRIL 40 MG TABLET. PO SCH (08:35)
[2016-12-03] MEDS: FOLIC ACID 1 MG TABLET. PO SCH (08:35)
[2016-12-03] MEDS: DOCUSATE SODIUM 100 MG CAPSULE. PO SCH (08:35)
[2016-12-03] MEDS: THIAMINE 100 MG TABLET. PO SCH (08:35)
[2016-12-03] MEDS: MULTIVITAMIN with MINERAL TABLET. PO SCH (08:36)
[2016-12-03] MEDS: ASPIRIN CHEWABLE 81 MG TABLET. PO SCH (08:36)
[2016-12-03] MEDS ORDERED: MAGNESIUM HYDROXIDE 2,400 MG/30 ML ORAL.SUSP. PO PRN (09:15)
--- NOTE | 2016-12-03 14:54 | PDOC3 ---
Discharge Summary Visit Information Date of Admission: December 01, 2016 Date of Discharge: December 03, 2016 Admitting Diagnosis: abd pain Final Diagnosis incarcerated right femoral hernia s/p femoral hernia repair SIRS, POA, no organ dysfunction hyponatremia Brief Hospital Course Allergies Allergies Coded Allergies Type Severity Reaction Last Updated Verified No Known Drug Allergies 12/01/16 No Vital Signs Vital Signs Date Time Temp Pulse Resp B/P (MAP) Pulse Ox O2 Delivery O2 Flow Rate FiO2 12/03/16 08:35 71 131/85 12/03/16 08:00 Room Air 12/03/16 07:00 97.9 16 97 97.9 12/02/16 11:00 2.0 Lab Results Laboratory Tests Test 12/02/16 06:22 12/03/16 04:25 White Blood Count 12.4 x10^3/uL (4.0-11.0) 9.6 x10^3/uL (4.0-11.0) Red Blood Count 3.69 x10^6/uL (4.30-5.70) 3.63 x10^6/uL (4.30-5.70) Hemoglobin 13.1 g/dL (13.0-17.5) 13.0 g/dL (13.0-17.5) Hematocrit 37.5 % (39.0-53.0) 37.0 % (39.0-53.0) Mean Corpuscular Volume 102 fL (79-100) 102 fL (79-100) Mean Corpuscular Hemoglobin 36 pg (25-35) 36 pg (25-35) Mean Corpuscular Hemoglobin Concent 35 g/dL (31-37) 35 g/dL (31-37) Red Cell Distribution Width 13.7 % (11.5-14.5) 13.4 % (11.5-14.5) Platelet Count 309 x10^3/uL (140-400) 297 x10^3/uL (140-400) Neutrophils (%) (Auto) 78 % (31-73) 63 % (31-73) Lymphocytes (%) (Auto) 13 % (24-48) 25 % (24-48) Monocytes (%) (Auto) 9 % (0-9) 10 % (0-9) Eosinophils (%) (Auto) 0 % (0-3) 2 % (0-3) Basophils (%) (Auto) 0 % (0-3) 1 % (0-3) Neutrophils # (Auto) 9.6 x10^3uL (1.8-7.7) 6.0 x10^3uL (1.8-7.7) Lymphocytes # (Auto) 1.6 x10^3/uL (1.0-4.8) 2.4 x10^3/uL (1.0-4.8) Monocytes # (Auto) 1.1 x10^3/uL (0.0-1.1) 0.9 x10^3/uL (0.0-1.1) Eosinophils # (Auto) 0.0 x10^3/uL (0.0-0.7) 0.2 x10^3/uL (0.0-0.7) Basophils # (Auto) 0.0 x10^3/uL (0.0-0.2) 0.1 x10^3/uL (0.0-0.2) Sodium Level 132 mmol/L (136-145) 135 mmol/L (136-145) Potassium Level 4.3 mmol/L (3.5-5.1) 3.9 mmol/L (3.5-5.1) Chloride Level 100 mmol/L (98-107) 101 mmol/L (98-107) Carbon Dioxide Level 25 mmol/L (21-32) 29 mmol/L (21-32) Anion Gap 7 (6-14) 5 (6-14) Blood Urea Nitrogen 11 mg/dL (8-26) 10 mg/dL (8-26) Creatinine 0.8 mg/dL (0.7-1.3) 0.8 mg/dL (0.7-1.3) Estimated GFR (Cockcroft-Gault) 97.3 97.3 Glucose Level 98 mg/dL (70-99) 91 mg/dL (70-99) Calcium Level 8.2 mg/dL (8.5-10.1) 8.5 mg/dL (8.5-10.1) Total Bilirubin 0.6 mg/dL (0.2-1.0) Direct Bilirubin 0.2 mg/dL (0.0-0.2) Aspartate Amino Transf (AST/SGOT) 27 U/L (15-37) Alanine Aminotransferase (ALT/SGPT) 19 U/L (16-63) Alkaline Phosphatase 35 U/L (46-116) Total Protein 6.5 g/dL (6.4-8.2) Albumin 3.1 g/dL (3.4-5.0) Laboratory Tests Test 12/03/16 04:25 White Blood Count 9.6 x10^3/uL (4.0-11.0) Red Blood Count 3.63 x10^6/uL (4.30-5.70) Hemoglobin 13.0 g/dL (13.0-17.5) Hematocrit 37.0 % (39.0-53.0) Mean Corpuscular Volume 102 fL (79-100) Mean Corpuscular Hemoglobin 36 pg (25-35) Mean Corpuscular Hemoglobin Concent 35 g/dL (31-37) Red Cell Distribution Width 13.4 % (11.5-14.5) Platelet Count 297 x10^3/uL (140-400) Neutrophils (%) (Auto) 63 % (31-73) Lymphocytes (%) (Auto) 25 % (24-48) Monocytes (%) (Auto) 10 % (0-9) Eosinophils (%) (Auto) 2 % (0-3) Basophils (%) (Auto) 1 % (0-3) Neutrophils # (Auto) 6.0 x10^3uL (1.8-7.7) Lymphocytes # (Auto) 2.4 x10^3/uL (1.0-4.8) Monocytes # (Auto) 0.9 x10^3/uL (0.0-1.1) Eosinophils # (Auto) 0.2 x10^3/uL (0.0-0.7) Basophils # (Auto) 0.1 x10^3/uL (0.0-0.2) Sodium Level 135 mmol/L (136-145) Potassium Level 3.9 mmol/L (3.5-5.1) Chloride Level 101 mmol/L (98-107) Carbon Dioxide Level 29 mmol/L (21-32) Anion Gap 5 (6-14) Blood Urea Nitrogen 10 mg/dL (8-26) Creatinine 0.8 mg/dL (0.7-1.3) Estimated GFR (Cockcroft-Gault) 97.3 Glucose Level 91 mg/dL (70-99) Calcium Level 8.5 mg/dL (8.5-10.1) Total Bilirubin 0.6 mg/dL (0.2-1.0) Direct Bilirubin 0.2 mg/dL (0.0-0.2) Aspartate Amino Transf (AST/SGOT) 27 U/L (15-37) Alanine Aminotransferase (ALT/SGPT) 19 U/L (16-63) Alkaline Phosphatase 35 U/L (46-116) Total Protein 6.5 g/dL (6.4-8.2) Albumin 3.1 g/dL (3.4-5.0) Brief Hospital Course Mr. Adamson is a 66 old male transferred from [facility], acute RLQ abd pain , taken to OR for incarcerated hernia, s/p femoral hernia repair by Dr. Wakefield on 12/01, t felt better, than ADAT, stool softeners, stooled before DC, felt well OOB to chair, ambulate Discharge Information Condition at Discharge: Improved Follow Up: Weeks Disposition/Orders: D/C to Home Scheduled Aspirin (Aspirin), 1 TAB PO DAILY, (Reported) Folic Acid (Folic Acid), 1 MG PO DAILY, (Reported) Lactose-Reduced Food (Ensure Enlive), 237 ML PO BID, (Reported) Lisinopril (Lisinopril), 1 TAB PO DAILY, (Reported) Multivitamin (Multivitamins), 1 TAB PO DAILY, (Reported) Thiamine Hcl (Thiamine Hcl), 100 MG PO DAILY, (Reported) Miscellaneous Medications Lactose-Reduced Food (Ensure Enlive), 237 ML PO, (Reported) Patient Instructions Patient Instructions time < 30 min f/u [facility], f/u Dr. Wakefield 1 week EILEEN GOMEZ MD December 03, 2016 14:54
--- NOTE | 2016-12-07 09:29 | PATHOLOGY ---
PATHOLOGY REPORT * * * * * * * * FINAL DIAGNOSIS: "Right femoral hernia sac," herniorrhaphy: - Hernia sac with associated fibrosis and mild chronic inflammation. (SHEFALI:; d/t: 12/06/16) REPORT ELECTRONICALLY SIGNED BY: Kinjal Diaz M.D. DATE/TIME: 12/07/2016 09:29 * * * * * * * * GROSS PATHOLOGY: Received in formalin labeled "Mayito Adamson, right femoral hernia sac," is a piece of fibroadipose tissue measuring 4.1 x 3.1 x 2.9 cm. No nodules or lesions are identified. [employer] tissue is submitted in cassette A1. (KAH; 12/03/2016) INITIAL CPT CODE(S): A; 01046 Professional services performed [place] [address] Technical services performed by [facility] at [address] [place] [address] [address], [place] [address]. SPECIMEN(S) RECEIVED: A.Right femoral hernia sac CLINICAL HISTORY: Incarcerated right inguinal hernia PATIENT: MAYITO ADAMSON /AGE: 903/26/1950 (Age: 66) PATIENT #: [id number] ALT CASE #: SPECIMEN COLLECTION DATE: 12/01/2016 SPECIMEN RECEIVED DATE: 12/02/2016 [facility] - [address] [place] [address] - PHONE: [phone] * * * END OF REPORT * * *
== END 2016-12-03 11:13 | disposition home or self-care (01) | DRG 351 ==
LOC: 5 NORTH 04:55
PROVIDERS: ADMIT Internal Medicine Hematology & Oncology; ATTEND Internal Medicine Hematology & Oncology
PROC: 0YQ74ZZ Repair Right Femoral Region, Percutaneous Endoscopic Approach (ICD-10-PCS; principal; 2016-12-01 14:00)
DX: K41.30 Unilateral femoral hernia, with obstruction, without gangrene, not specified as recurrent (principal); K40.30 Unilateral inguinal hernia, with obstruction, without gangrene, not specified as recurrent; R65.10 Systemic inflammatory response syndrome (SIRS) of non-infectious origin without acute organ dysfunction; E87.1 Hypo-osmolality and hyponatremia; K56.60 Unspecified intestinal obstruction; I10 Essential (primary) hypertension; Z82.3 Family history of stroke; Z86.73 Personal history of transient ischemic attack (TIA), and cerebral infarction without residual deficits
CPT/HCPCS: 36415; 74020; 80048; 80053; 80076; 83605; 85027; 88302; 94250; 94760; J0330; J0690; J1100; J1170; J1650; J2370; J2405; J2704; J2710; J3010; J3490; J7030; J7120